=== PATIENT | female | born 1980 | race American Indian/Alaskan Native ===

== ENCOUNTER 2017-03-01 17:37 | Emergency (ER) | payer BC, OTHER ==
[2017-03-01] MEDS ORDERED: ATIVAN ONE (18:15)
[2017-03-01] MEDS ORDERED: ATIVAN IV ONE (18:19)
--- NOTE | 2017-03-01 18:36 | Emergency Department Report ---
ED Altered Mental Status HPI - General Chief Complaint: Altered Mental Status Stated Complaint: AMS Time Seen by Provider: 03/01/17 18:18 Source: patient, family, EMS Mode of arrival: Ambulatory Limitations: Altered Mental Status - History of Present Illness Initial Comments: 36-year-old female presents to the emergency department via EMS for evaluation of altered mental status. Family reports the patient has a history of stage IV metastatic breast cancer, with metastases to the brain and spine. Family reports that earlier today the patient began acting wildly. She has had intermittent episodes of thrashing about uncontrollably. Patient has been alert through these episodes. Family called the patient's breast surgeon, and was told to bring the patient to the emergency department. EMS reports that the patient has had stable vital signs throughout transport and was mostly cooperative. Patient has had several more episodes of severe restlessness, but was able to be verbally redirected. There have been no other complaints. MD Complaint: altered mental status -: Sudden, This afternoon Severity: severe Consistency of Symptoms: waxing and waning Context: cancer Associated Symptoms: denies other symptoms - Related Data Home Medications Medication Instructions Recorded Confirmed Last Taken Calcium Carbonate/Vitamin D3 1 each PO DAILY 08/14/16 08/14/16 Unknown [Calcium 500 + D Tablet] Magnesium Amino Acid Chelate 1 tab PO DAILY 08/14/16 08/14/16 Unknown [Magnesium] Milk Thistle Seed Extract [Milk 1 tab PO DAILY 08/14/16 08/14/16 Unknown Thistle] Previous Rx's Medication Instructions Recorded Last Taken Type ALPRAZolam [Xanax TAB] 0.25 mg PO Q8H PRN #15 tablet 08/22/16 Unknown Rx Levofloxacin [Levaquin TAB] 500 mg PO Q24HR #5 tablet 08/22/16 Unknown Rx guaiFENesin DM [Robitussin Dm] 10 ml PO Q4H PRN 10 Days 08/22/16 Unknown Rx predniSONE [Deltasone] 40 mg PO QDAY #10 tab 08/22/16 Unknown Rx LORazepam [Ativan] 1 mg PO TID PRN #20 tablet 03/01/17 Unknown Rx Allergies Allergy/AdvReac Type Severity Reaction Status Date / Time latex Allergy Intermediate Itching Verified 07/17/16 07:45 ED Review of Systems ROS: Stated complaint: AMS Other details as noted in HPI Comment: All other systems reviewed and negative Neurological: as per HPI, confusion. denies: headache, weakness, numbness, paresthesias ED Past Medical Hx - Past Medical History Previous Medical History?: Yes Hx Heart Attack/AMI: No Hx Congestive Heart Failure: No Hx Diabetes: No Hx Pulmonary Embolism: No Hx of Cancer: Yes (breast with mets to brain, spine) Hx Asthma: No Hx COPD: No Hx Tuberculosis: No Hx HIV: No - Surgical History Past Surgical History?: Yes Hx Appendectomy: Yes Hx Breast Surgery: Yes (BREAST REDUCTION IN 1999, LEFT BREAST BX 07/2016) Additional Surgical History: Left Breast Biopsy 07/05/16. Breast reduction. c- section - Family History Family history: no significant - Social History Smoking Status: Never Smoker Substance Use Type: None - Medications Home Medications: Home Medications Medication Instructions Recorded Confirmed Last Taken Type Calcium Carbonate/Vitamin D3 1 each PO DAILY 08/14/16 08/14/16 Unknown History [Calcium 500 + D Tablet] Magnesium Amino Acid Chelate 1 tab PO DAILY 08/14/16 08/14/16 Unknown History [Magnesium] Milk Thistle Seed Extract [Milk 1 tab PO DAILY 08/14/16 08/14/16 Unknown History Thistle] ALPRAZolam [Xanax TAB] 0.25 mg PO Q8H PRN #15 tablet 08/22/16 Unknown Rx Levofloxacin [Levaquin TAB] 500 mg PO Q24HR #5 tablet 08/22/16 Unknown Rx guaiFENesin DM [Robitussin Dm] 10 ml PO Q4H PRN 10 Days 08/22/16 Unknown Rx predniSONE [Deltasone] 40 mg PO QDAY #10 tab 08/22/16 Unknown Rx LORazepam [Ativan] 1 mg PO TID PRN #20 tablet 03/01/17 Unknown Rx ED Physical Exam - General Limitations: Altered Mental Status General appearance: alert - Head Head exam: Present: atraumatic, normocephalic - Eye Eye exam: Present: normal appearance, PERRL, EOMI - ENT ENT exam: Present: normal exam, normal orophraynx, mucous membranes moist - Neck Neck exam: Present: normal inspection, full ROM. Absent: tenderness - Respiratory Respiratory exam: Present: normal lung sounds bilaterally. Absent: respiratory distress - Cardiovascular Cardiovascular Exam: Present: normal rhythm, tachycardia, normal heart sounds - GI/Abdominal GI/Abdominal exam: Present: soft, normal bowel sounds. Absent: distended, tenderness - Extremities Exam Extremities exam: Present: normal inspection, full ROM. Absent: tenderness - Back Exam Back exam: Present: normal inspection, full ROM. Absent: tenderness - Neurological Exam Neurological exam: Present: alert, oriented X3. Absent: motor sensory deficit - Skin Skin exam: Present: warm, dry, intact ED Course Vital Signs 03/01/17 03/01/17 03/01/17 18:18 19:15 20:00 Temperature 99.1 F 99.2 F Pulse Rate 141 H 123 H Respiratory 18 18 Rate Blood Pressure 159/100 Blood Pressure 93/70 [Left] O2 Sat by Pulse 97 100 100 Oximetry - Reevaluation(s) Reevaluation #1: 03/01/17 18:36 On exam the patient appears to be extremely restless, but without neurologic deficit. 2 mg of IV Ativan were administered with resolution of the restlessness. Obtaining labs and head CT. There is low clinical suspicion for intracranial hemorrhage. It is more likely that the patient has an electrolyte disorder secondary to her cancer. Will continue to observe. - Lab Data Result diagrams: 03/01/17 18:23 03/01/17 18:23 Lab Results 03/01/17 03/01/17 03/01/17 Range/Units 18:23 18:23 18:23 WBC 2.7 L (4.5-11.0) K/mm3 RBC 4.79 (3.65-5.03) M/mm3 Hgb 14.1 (10.1-14.3) gm/dl Hct 40.6 (30.3-42.9) % MCV 85 (79-97) fl MCH 30 (28-32) pg MCHC 35 H (30-34) % RDW 17.8 H (13.2-15.2) % Plt Count 189 (140-440) K/mm3 Lymph % (Auto) 18.1 (13.4-35.0) % [place] % (Auto) 4.4 (0.0-7.3) % Eos % (Auto) 1.0 (0.0-4.3) % Baso % (Auto) 1.0 (0.0-1.8) % Lymph # 0.5 L (1.2-5.4) K/mm3 [place] # 0.1 (0.0-0.8) K/mm3 Eos # 0.0 (0.0-0.4) K/mm3 Baso # 0.0 (0.0-0.1) K/mm3 Seg Neutrophils % 75.5 H (40.0-70.0) % Seg Neutrophils # 2.0 (1.8-7.7) K/mm3 Sodium 133 L (137-145) mmol/L Potassium 3.3 L (3.6-5.0) mmol/L Chloride 95.0 L (98-107) mmol/L Carbon Dioxide 21 L (22-30) mmol/L Anion Gap 20 mmol/L BUN 9 (7-17) mg/dL Creatinine 0.5 L (0.7-1.2) mg/dL Estimated GFR > 60 ml/min BUN/Creatinine Ratio 18.00 % Glucose 116 H (65-100) mg/dL Lactic Acid 2.1 H* (0.7-2.0) mmol/L Calcium 9.2 (8.4-10.2) mg/dL Total Bilirubin 0.30 (0.1-1.2) mg/dL AST 25 (5-40) units/L ALT 35 (7-56) units/L Alkaline Phosphatase 63 (35-129) units/L Ammonia (25-60) umol/L Total Creatine Kinase 191 H (30-135) units/L Total Protein 7.1 (6.3-8.2) g/dL Albumin 3.9 (3.9-5) g/dL Albumin/Globulin Ratio 1.2 % // Range/Units 18:23 WBC (4.5-11.0) K/mm3 RBC (3.65-5.03) M/mm3 Hgb (10.1-14.3) gm/dl Hct (30.3-42.9) % MCV (79-97) fl MCH (28-32) pg MCHC (30-34) % RDW (13.2-15.2) % Plt Count (140-440) K/mm3 Lymph % (Auto) (13.4-35.0) % [place] % (Auto) (0.0-7.3) % Eos % (Auto) (0.0-4.3) % Baso % (Auto) (0.0-1.8) % Lymph # (1.2-5.4) K/mm3 [place] # (0.0-0.8) K/mm3 Eos # (0.0-0.4) K/mm3 Baso # (0.0-0.1) K/mm3 Seg Neutrophils % (40.0-70.0) % Seg Neutrophils # (1.8-7.7) K/mm3 Sodium (137-145) mmol/L Potassium (3.6-5.0) mmol/L Chloride (98-107) mmol/L Carbon Dioxide (22-30) mmol/L Anion Gap mmol/L BUN (7-17) mg/dL Creatinine (0.7-1.2) mg/dL Estimated GFR ml/min BUN/Creatinine Ratio % Glucose (65-100) mg/dL Lactic Acid (0.7-2.0) mmol/L Calcium (8.4-10.2) mg/dL Total Bilirubin (0.1-1.2) mg/dL AST (5-40) units/L ALT (7-56) units/L Alkaline Phosphatase (35-129) units/L Ammonia 29.0 (25-60) umol/L Total Creatine Kinase (30-135) units/L Total Protein (6.3-8.2) g/dL Albumin (3.9-5) g/dL Albumin/Globulin Ratio % - Radiology Data Radiology results: report reviewed, image reviewed CT of the head shows no acute intracranial process. - Medical Decision Making Lab and imaging results reviewed and discussed with the family. I have spoken with Dr. Mcmahon, oncology. He states patient may be discharged home to follow up with his primary oncologist on Friday. This plan was discussed with the family who agrees. A shunt already has an appointment on Friday with her oncologist. Patient will be provided with a prescription for oral Ativan. - Differential Diagnosis hypernatremia, hyponatremia, hypercalcemia, ICH, anxiety Critical care attestation.: If time is entered above; I have spent that time in minutes in the direct care of this critically ill patient, excluding procedure time. ED Disposition Clinical Impression: Anxiety Disposition: DISCHARGED TO HOME OR SELFCARE Is pt being admited?: No Condition: Stable Instructions: Anxiety (ED) Prescriptions: LORazepam [Ativan] 1 mg PO TID PRN #20 tablet PRN Reason: Anxiety Referrals: CISCO MCCLURE MD [Staff Physician] - 3-5 Days Time of Disposition: 20:10
[2017-03-01 18:45] LABS: Hematocrit 40.6 % (30.3-42.9); Hemoglobin 14.1 gm/dl (10.1-14.3); Mean Corpuscular HGB Conc 35 % (30-34); Mean Corpuscular Hemoglobin 30 pg (28-32); Mean Corpuscular Volume 85 fl (79-97); Platelet Count 189 K/mm3 (140-440); Red Blood Count 4.79 M/mm3 (3.65-5.03); Red Cell Distribution Width 17.8 % (13.2-15.2); White Blood Count 2.7 K/mm3 (4.5-11.0)
[2017-03-01 18:59] LABS: Alanine Aminotransferase 35 units/L (7-56); Albumin 3.9 g/dL (3.9-5); Albumin/Globulin Ratio 1.2 %; Alkaline Phosphatase 63 units/L (35-129); Anion Gap 20 mmol/L; Blood Urea Nitrogen 9 mg/dL (7-17); Calcium 9.2 mg/dL (8.4-10.2); Carbon Dioxide 21 mmol/L (22-30); Creatine Kinase 191 units/L (30-135); Glucose 116 mg/dL (65-100); Potassium 3.3 mmol/L (3.6-5.0); Sodium 133 mmol/L (137-145); Total Protein 7.1 g/dL (6.3-8.2)
--- NOTE | 2017-03-01 19:33 | Cat Scan Report ---
FINAL REPORT EXAM: CT HEAD/BRAIN WO CON HISTORY: Altered Mental Status TECHNIQUE: CT was performed from the foramen magnum through the vertex in the axial plane without the use of intravenous contrast. PRIORS: None. FINDINGS: The neal/white matter attenuation pattern is normal. There is no mass lesion or mass effect. There are no abnormal extra-axial fluid collections. There is no evidence of acute intracranial hemorrhage or infarct. The ventricles are of normal size and configuration. The skull and orbits are unremarkable. The visualized paranasal sinuses are clear. IMPRESSION: Normal CT of the head.
[2017-03-01 20:00] VITALS: BP 93/70
== END 2017-03-01 20:35 | disposition home or self-care (01) ==
LOC: ED 17:37
DX: F41.9 Anxiety disorder, unspecified (principal); Z91.040 Latex allergy status; Z85.3 Personal history of malignant neoplasm of breast; Z85.841 Personal history of malignant neoplasm of brain
CPT/HCPCS: 36415; 70450; 80053; 82140; 82550; 85025; 96374; 99285; J2060